=== PATIENT | female | born 1960 | race Caucasian/White ===

== ENCOUNTER 2016-12-06 19:13 | Emergency (ER) | payer BC ==
[2016-12-06 19:44] VITALS: BP 137/79; PULSE 80; RESP 20; TEMP 98.4; O2SAT 97
--- NOTE | 2016-12-06 19:47 | UCPHY ---
H & P Patient Type: New Chief Complaint Nursing Narrative: painful urination. frequency Time Seen by Provider: 12/06/16 19:35 HPI/ROS: Chief complaint: Urinary frequency and back pain HPI: 56-year-old woman presenting with 2 days of increasing urinary frequency, urgency, and some low back pain which is about this afternoon. She has a history of UTI about a year ago. No fevers or chills. No nausea or vomiting. She is post menopausal. ROS: 10 point Review of Systems is negative except as noted in the HPI. Physical exam: Gen: Awake, Alert, No Distress HEENT: Mouth: Moist mucosa Neck: Supple, no JVD Abd: Soft, mild suprapubic tenderness to deep palpation, no guarding Back: Mild left CVA tenderness, no midline tenderness Ext: no edema, non-tender Skin: no rash Neuro: CN II-XII intact, Sensation grossly intact, Strength 5/5 in bilateral upper and lower extremities - Personal History Current Tetanus/Diphtheria Vaccine: Unsure Current Tetanus Diphtheria and Acellular Pertussis (TDAP): Unsure - Medical/Surgical History Hx Asthma: No Hx Chronic Respiratory Disease: No Hx Diabetes: No Hx Cardiac Disease: No Hx Renal Disease: No Hx Cirrhosis: No Hx Alcoholism: No Hx HIV/AIDS: No Hx Splenectomy or Spleen Trauma: No Other PMH: none - Family History Significant Family History: No pertinent family hx - Social History Smoking Status: Never smoked Constitutional: Initial Vital Signs Temperature (C) 36.9 C 12/06/16 19:38 Heart Rate 80 12/06/16 19:38 Respiratory Rate 20 12/06/16 19:38 Blood Pressure 137/79 H 12/06/16 19:38 O2 Sat (%) 97 12/06/16 19:38 O2 Delivery Mode Room Air Allergies/Adverse Reactions: Sulfa (Sulfonamide Antibiotics) Allergy (Verified 12/06/16 19:37) Home Medications: Medication Instructions Recorded Nitrofurantoin Monohyd/M-Cryst 100 mg PO BID #10 capsule 12/06/16 [Macrobid 100 mg Capsule] Medical Decision Making - Data Points Laboratory Results: 12/06/16 19:40 Urine Color YELLOW Urine Appearance CLOUDY Urine pH 6.0 (5.0-7.5) Ur Specific [place] 1.010 (1.002-1.030) Urine Protein 1+ H (NEGATIVE) Urine Ketones NEGATIVE (NEGATIVE) Urine Blood 3+ H (NEGATIVE) Urine Nitrate NEGATIVE (NEGATIVE) Urine Bilirubin NEGATIVE (NEGATIVE) Urine Urobilinogen 0.2 EU (0.2-1.0) Ur Leukocyte Esterase 2+ H (NEGATIVE) Urine RBC Pending Urine WBC Pending Ur Epithelial Cells Pending Urine Glucose NEGATIVE (NEGATIVE) Departure - Departure Disposition: Home, Routine, Self-Care Clinical Impression: Urinary tract infection Condition: Good Instructions: Urinary Tract Infection in Women (ED) Additional Instructions: Follow up with your doctor in 4-5 days if symptoms are not improving. Referrals: Heavenly Zamora MD [Primary Care Provider] - As per Instructions Prescriptions: Nitrofurantoin Monohyd/M-Cryst [Macrobid 100 mg Capsule] 100 mg PO BID #10 capsule - PQRS PQRS Measurement: NA
[2016-12-06 19:51] LABS: COLOR YELLOW; LEUKOCYTE ESTERASE,URINE 2+ (NEGATIVE); NITRITE,URINE NEGATIVE (NEGATIVE)
[2016-12-06] MEDS ORDERED: NITROFURANTOIN 100MG PREPACK#2 BTL TAKEHOME ONE (20:03)
[2016-12-06 20:09] LABS: RBC,URINE 15-25 /hpf (0-3); WBC,URINE 50-182 /hpf (0-3)
[2016-12-06 20:11] LABS: BACTERIA 2+ /hpf (NONE SEEN)
== END 2016-12-06 20:09 | disposition home or self-care (01) ==
LOC: CED 19:13
DX: N39.0 Urinary tract infection, site not specified (principal)
CPT/HCPCS: 81003-PO; 81015-PO; 99204-PO; G0463-PO

== ENCOUNTER → 2018-01-01 | Outpatient (CLI) | payer BC ==
[~2018-01-01] MED LIST: GADOBUTROL 10 ML VIAL IVP ONE
== END ==
LOC: FIMAGING 19:54
PROVIDERS: ATTEND Otolaryngology
DX: H91.22 Sudden idiopathic hearing loss, left ear (principal)
CPT/HCPCS: A9585